=== PATIENT | male | born 1985 | race Two or more races ===

== ENCOUNTER 2017-04-29 11:52 | Emergency (ER) | payer SELFPAY ==
[2017-04-29 12:06] VITALS: BP 122/74
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
== END 2017-04-29 13:35 | disposition home or self-care (01) ==
LOC: ER 11:52
DX: G89.29 Other chronic pain (principal); M54.89 Other dorsalgia; M54.2 Cervicalgia; X58.XXXS Exposure to other specified factors, sequela; F17.200 Nicotine dependence, unspecified, uncomplicated
CPT/HCPCS: 99283

== ENCOUNTER 2019-07-15 18:52 | Emergency (ER) | payer OTHER ==
[2019-07-15 19:21] VITALS: BP 122/77
[2019-07-15] MEDS ORDERED: OXYCODONE-ACETAMINOPHEN 5-325 MG TABLET PO ONE (20:43)
--- NOTE | 2019-07-15 20:52 | ER Document Report ---
HPI - HPI Patient complains to provider of: right hand injury Time Seen by Provider: 07/15/19 20:04 Pain Level: 3 Context: Patient is a 34-year-old male presents to the emergency department with an injury to his right hand. States he was at work when his coworker was hitting a metal pin weighing approximately 50 pounds. States they were trying to unhinge it. States the metal bailey fell onto his right hand. States most of his pain is in the right ring finger. Patient states his last tetanus immunization was approximately 1 year ago. - CONSTITUTIONAL Constitutional: DENIES: Fever, Chills - REPRODUCTIVE Reproductive: DENIES: : - MUSCULOSKELETAL Musculoskeletal: REPORTS: Extremity pain - right hand Past Medical History - General Information source: Patient - Social History Smoking Status: Current Every Day Smoker Chew tobacco use (# tins/day): No Frequency of alcohol use: None Drug Abuse: None Family History: Reviewed & Not Pertinent Patient has suicidal ideation: No Patient has homicidal ideation: No Renal/ Medical History: Denies: Hx Peritoneal Dialysis Vertical Provider Document - CONSTITUTIONAL Agree With Documented VS: Yes Notes: GENERAL: Alert, interacts well. No acute distress. HEAD: Normocephalic, atraumatic. EYES: Pupils equal, round, and reactive to light. Extraocular movements intact. ENT: Oral mucosa moist, tongue midline. NECK: Full range of motion. Supple. Trachea midline. LUNGS: Clear to auscultation bilaterally, no wheezes, rales, or rhonchi. No respiratory distress. HEART: Regular rate and rhythm. No murmur ABDOMEN: Soft, non-tender. Non-distended. Bowel sounds present in all 4 quadrants. EXTREMITIES: Moves all 4 extremities spontaneously. No edema, normal radial and dorsalis pedis pulses bilaterally. No cyanosis. Full range of motion MCP, PIP, DIP joints right hand. Capillary refill less than 2 seconds distally all 5 fingers right hand. BACK: no cervical, thoracic, lumbar midline tenderness. No saddle anesthesia, normal distal neurovascular exam. NEUROLOGICAL: Alert and oriented x3. Normal speech. cranial nerves II through XII grossly intact PSYCH: Normal affect, normal mood. SKIN: Warm, dry, normal turgor. 0.25 x 0.25 cm abrasion noted to the dorsal aspect of patient's PIP joint right ring finger. - INFECTION CONTROL TRAVEL OUTSIDE OF THE [place] IN LAST 30 DAYS: No Course - Re-evaluation Re-evalutation: 07/15/19 21:02 Hand X-Ray 07/15/19 20:03 IMPRESSION: No acute fracture or foreign body. I discussed negative x-rays with patient at bedside. Discussed continued follow-up with primary care provider, return precautions. Patient stable for discharge. - Vital Signs Vital signs: Temp Pulse Resp BP Pulse Ox 98.4 F 84 22 H 122/77 98 07/15/19 19:19 07/15/19 19:19 07/15/19 19:19 07/15/19 19:19 07/15/19 19:19 Discharge - Discharge Clinical Impression: Injury of right hand Qualifiers: Encounter type: initial encounter Qualified Code(s): S69.91XA - Unspecified injury of right wrist, hand and finger(s), initial encounter Condition: Stable Disposition: HOME, SELF-CARE Additional Instructions: As we discussed you have been seen and treated in the emergency department for an injury to your right hand. Your initial x-rays revealed no signs of broken bones. Sometimes due to swelling you cannot initially see broken bones. Should you have continued pain for the next 7 days you should follow-up with your primary care provider for repeat x-rays. Please take [id number] Tylenol Motrin for generalized pain. Please return to the emergency room for any concerns. Forms: Return to Work Referrals: [facility] [Provider Group] - Follow up as needed [facility] [Provider Group] - Follow up as needed
--- NOTE | 2019-07-15 20:58 | RADIOLOGY REPORT (SQ) ---
3 VIEWS OF RIGHT HAND EXAM DATE: 07/15/2019 8:03 PM CDT HISTORY: trauma to fingers . COMPARISON: None. FINDINGS: No acute fracture or dislocation is seen. The joint spaces are preserved. The soft tissues are mildly swollen. No radiopaque foreign body is identified. IMPRESSION: No acute fracture or foreign body.
== END 2019-07-15 21:14 | disposition home or self-care (01) ==
LOC: ER 18:52
DX: S69.91XA Unspecified injury of right wrist, hand and finger(s), initial encounter (principal); W20.8XXA Other cause of strike by thrown, projected or falling object, initial encounter; Y99.0 Civilian activity done for income or pay; F17.200 Nicotine dependence, unspecified, uncomplicated
CPT/HCPCS: 99283